=== PATIENT | male | born 1970 | race Caucasian/White ===

== ENCOUNTER 2018-09-04 02:35 | Emergency (ER) | payer BC, SELFPAY ==
[2018-09-04 02:36] VITALS: BP 134/94; PULSE 82; RESP 16; TEMP 36.9; O2SAT 97; BMI 25.1
--- NOTE | 2018-09-04 02:49 | ED.VIS.GEN ---
History of Present Illness Chief Complaint: Bite Informant: Patient Onset: Days - 2 Context: Gradual Onset Timing: Continuous Quality: sore/painful Location: R hand Current Severity: Moderate Maximum Severity: Moderate Worsened by: palpation Relieved by: nothing Associated Symptoms: 2 areas together; one drained small amount of clear liquid Narrative: [id number]. No injury or repetitive mechanical irritation to this area that he knows of. Took a picture of when it started, which he and his showed me. It looked blanched and nonerythematous at the beginning, it did not start as a pustule. There is no bite mariaa. Now, there is only a mariaa where he had some clear liquid draining. No systemic symptoms or fevers. Not an IV drug abuser. Did not see anything bite him, but wondering if it is a spider bite. Past Medical History - Allergies and Home Meds Allergies/Adverse Reactions: Allergies shellfish derived Allergy (Verified 09/04/18 02:37) Angioedema ATB Allergy (Uncoded 09/04/18 02:37) Unknown Primary Care Physician: Care Physician,No Primary [Primary Care Provider] - Past Medical History: None Lives: Spouse/ Significant Other Smoking Status: Current every day smoker Drugs: None Review of Systems General: Denies: Chills, Fever Musculoskeletal: Reports: Extremity Pain - R hand Skin: Reports: Wounds - R hand Neurological: Reports: Parasthesia - occasionally in hand when dependent. Denies: Weakness Physical Exam Vital Signs/Narrative: Vital Signs Temp Pulse Resp BP Pulse Ox 09/04/18 02:36 98.5 F 82 16 134/94 H 97 Inital Vital Signs reviewed: Yes General: Well nourished, Well developed, No Acute Distress Head: Normocephalic, Atraumatic Extremities: No edema, Tenderness - at R hand skin lesions. Skin: No Trauma, Rash - 2 small ecchymotic bullae at ulnar aspect of hand/hypothenar eminence. mildly tender. not fluctuant. seem relatively superficial. Neurological: Alert, Oriented x3, Cranial nerves II-XII grossly intact, Normal Strength, Normal Sensation Psychological: Normal affect, Normal Mood Diagnostic/Tx/Re-eval - Medical Decision Making After performing simple incision and drainage, it appears to be a bulla. He does not have them anywhere else other than his right hand. states he has had small painful hard nodules on hair follicles in the past. This is at the ulnar aspect of his hand, and just volar to the hairline on the dorsum of his hand. There is no abscess but I would say it could be infectious until proven otherwise so I will advised topical antibiotics and put him on oral Bactrim to cover him against MRSA. He has no PCP. He states he lives in [place]. I do not have anyone to refer him to in that area, but I will give him information for [facility] which is the closest in [facility] that we refer to, also advised that he may look up his PCP of choice in his home town area. Procedures Procedure(s): Simple incision and drainage -- unruptured lesion prepped with isopropyl alcohol and punctured with an 18-gauge needle, small amount of thick clear fluid with a positive string sign expressed. Dressed with bacitracin and Band-Aid. ED Disposition - Plan for ED Patient: Disposition: Home or Assisted Living Diagnosis: Blister of hand with infection Instructions: ED Blister Prescriptions: Smz/Tmp Ds [Bactrim Ds] 1 tab PO BID #[id number] tab Referrals: Eric Holguin DO [STAFF PHYSICIAN] - 1 Week if not improving Additional Instructions: As long as there is any drainage, keep covered with topical antibiotic ointment and a Band-Aid.
[2018-09-04] MEDS: Smz/Tmp Ds Tablet 1 TABLET PO (03:20)
== END 2018-09-04 03:21 | disposition home or self-care (01) ==
PROVIDERS: Emergency Provider Emergency Medicine
DX: L98.8 Other specified disorders of the skin and subcutaneous tissue (principal); L08.89 Other specified local infections of the skin and subcutaneous tissue; B96.89 Other specified bacterial agents as the cause of diseases classified elsewhere; F17.200 Nicotine dependence, unspecified, uncomplicated
CPT/HCPCS: 10140; 99283